=== PATIENT | female | born 1950 | race Caucasian/White ===

== ENCOUNTER → 2018-07-11 | Outpatient (CLI) | payer OTHER ==
[~2018-07-11] MED LIST: AMIT25TA9 PO; ASPI-555 PO; ATEN100T PO; ATOR10 PO; CELE200C PO; CYCL10 PO; GLIP1TAB6 PO; LOSA100T20 PO; MONT10TA24 PO; OXYB5TAB10 PO; TRAM50TA4 PO
[2018-07-11 13:43] LABS: CREATININE 0.8 mg/dL (0.5-1.5)
== END | disposition home or self-care (01) ==
LOC: LAB 12:47
PROVIDERS: ATTEND Internal Medicine
DX: M51.36 Other intervertebral disc degeneration, lumbar region (principal); M54.16 Radiculopathy, lumbar region; M54.31 Sciatica, right side; I10 Essential (primary) hypertension; E11.9 Type 2 diabetes mellitus without complications; E78.5 Hyperlipidemia, unspecified; Z90.710 Acquired absence of both cervix and uterus
CPT/HCPCS: 36415; 82565; 84520

== ENCOUNTER → 2018-07-15 | Outpatient (CLI) | payer OTHER ==
[~2018-07-15] MED LIST changes: +GADODIAMIDE 10 MMOL/20 ML ML IV ONE
== END | disposition home or self-care (01) ==
LOC: RAH 07:56
PROVIDERS: ATTEND Internal Medicine
DX: M51.27 Other intervertebral disc displacement, lumbosacral region (principal); M47.896 Other spondylosis, lumbar region; M48.07 Spinal stenosis, lumbosacral region; D18.09 Hemangioma of other sites
CPT/HCPCS: 72158; A9579

== ENCOUNTER → 2018-09-30 | Outpatient (CLI) | payer OTHER ==
[~2018-09-30] MED LIST changes: +BACL10TA PO; -CELE200C PO; -CYCL10 PO; +GABA-531 PO; -GADODIAMIDE 10 MMOL/20 ML ML IV ONE; -MONT10TA24 PO; -OXYB5TAB10 PO
== END | disposition home or self-care (01) ==
LOC: OIH 08:24
PROVIDERS: ATTEND Neurological Surgery
DX: M43.27 Fusion of spine, lumbosacral region (principal); M25.562 Pain in left knee; M25.462 Effusion, left knee
CPT/HCPCS: 72100; 73562

== ENCOUNTER → 2018-12-24 | Outpatient (CLI) | payer OTHER ==
[~2018-12-24] MED LIST changes: -LOSA100T20 PO; +LOSA100T58 PO
== END | disposition home or self-care (01) ==
LOC: RAH 12:42
PROVIDERS: ATTEND Internal Medicine
DX: N60.02 Solitary cyst of left breast (principal); N63.13 Unspecified lump in the right breast, lower outer quadrant; I77.9 Disorder of arteries and arterioles, unspecified
CPT/HCPCS: 76641; 77066; 93925

== ENCOUNTER → 2023-01-29 | Outpatient (CLI) | payer OTHER ==
[~2023-01-29] MED LIST changes: -ASPI-555 PO; +ASPI-556 PO
== END | disposition home or self-care (01) ==
LOC: RAH 13:43
PROVIDERS: ATTEND Internal Medicine
DX: Z12.31 Encounter for screening mammogram for malignant neoplasm of breast (principal)
CPT/HCPCS: 77067